=== PATIENT | female | born 1980 | race Caucasian/White ===

== ENCOUNTER → 2016-10-30 | Day surgery (SDC) | payer OTHER ==
[2016-10-30 09:50] LABS: HCT 36.6 % (37.0-47.0); HGB 12.9 g/dl (12.5-16.0); MCH 31.7 pg (25.0-31.0); MCHC 35.2 g/dL (32.0-36.0); MCV 89.9 fL (78.0-100.0); MPV 9.2 fL (6.0-9.5); RBC 4.07 M/uL (4.20-5.40); RDW 12.8 % (11.5-14.0); WBC 3.6 K/uL (4.0-10.5)
[2016-10-30 10:06] LABS: ALBUMIN 4.5 g/dL (3.5-5.0); BILIRUBIN - TOTAL 0.7 mg/dL (0.1-1.0); CREATININE 0.8 mg/dL (0.5-1.0); GLOBULIN (CALCULATION) 2.5 g/dL (2.2-4.2)
== END | disposition home or self-care (01) ==
LOC: FAS 09:26
PROVIDERS: Surgery
DX: Z12.11 Encounter for screening for malignant neoplasm of colon (principal); K29.70 Gastritis, unspecified, without bleeding; K21.9 Gastro-esophageal reflux disease without esophagitis; I34.1 Nonrheumatic mitral (valve) prolapse; E03.9 Hypothyroidism, unspecified; K58.9 Irritable bowel syndrome, unspecified; G30.9 Alzheimer's disease, unspecified; F02.80 Dementia in other diseases classified elsewhere, unspecified severity, without behavioral disturbance, psychotic disturbance, mood disturbance, and anxiety; Z87.891 Personal history of nicotine dependence; Z86.14 Personal history of Methicillin resistant Staphylococcus aureus infection; Z83.2 Family history of diseases of the blood and blood-forming organs and certain disorders involving the immune mechanism; Z83.42 Family history of familial hypercholesterolemia; Z82.49 Family history of ischemic heart disease and other diseases of the circulatory system; Z82.61 Family history of arthritis; Z83.3 Family history of diabetes mellitus; Z79.899 Other long term (current) drug therapy; Z98.890 Other specified postprocedural states
CPT/HCPCS: 43239; G0105; 36415; 80053; 84703; 88305; J2704

== ENCOUNTER → 2017-01-26 | Day surgery (SDC) | payer OTHER ==
[2017-01-26 09:16] LABS: HGB 13.1 g/dl (12.5-16.0); MCH 31.6 pg (25.0-31.0); MCHC 35.4 g/dL (32.0-36.0); MCV 89.2 fL (78.0-100.0); MPV 9.6 fL (6.0-9.5); RBC 4.15 M/uL (4.20-5.40); RDW 12.5 % (11.5-14.0); WBC 5.6 K/uL (4.0-10.5)
[2017-01-26 09:28] LABS: ALBUMIN 4.2 g/dL (3.5-5.0); BILIRUBIN - TOTAL 0.5 mg/dL (0.1-1.0); CREATININE 0.7 mg/dL (0.5-1.0); GLOBULIN (CALCULATION) 2.8 g/dL (2.2-4.2); POTASSIUM 4.5 mmol/L (3.5-5.1)
== END | disposition home or self-care (01) ==
LOC: FAS 07:59
PROVIDERS: Surgery
DX: K81.1 Chronic cholecystitis (principal); K21.9 Gastro-esophageal reflux disease without esophagitis; E03.9 Hypothyroidism, unspecified; Z98.890 Other specified postprocedural states; F41.9 Anxiety disorder, unspecified; Z79.1 Long term (current) use of non-steroidal anti-inflammatories (NSAID); Z79.52 Long term (current) use of systemic steroids; Z79.899 Other long term (current) drug therapy
CPT/HCPCS: 36415; 80053; 84703; 88304; J1170; J2405; J2704; J2710; J3010; Q9962

== ENCOUNTER 2021-07-29 10:01 | Emergency (ER) | payer OTHER ==
[2021-07-29 11:06] LABS: BASOPHIL 0.8 % (0-2); EOSINOPHIL 2.2 % (0-5); HCT 38.9 % (37.0-47.0); HGB 13.1 g/dl (12.5-16.0); LYMPHOCYTE 29.2 % (15-48); MCH 31.5 pg (25.0-31.0); MCHC 33.7 g/dL (32.0-36.0); MCV 93.5 fL (78.0-100.0); MONOCYTE 10.4 % (0-12); MPV 9.4 fL (6.0-9.5); NEUTROPHIL 56.6 % (41-80); NRBC 0; PLT 237 K/uL (150-400); RBC 4.16 M/uL (4.20-5.40); RDW 12.6 % (11.5-14.0); WBC 7.1 K/uL (4.0-10.5)
[2021-07-29 11:23] LABS: BILIRUBIN NEGATIVE (NEGATIVE); BLOOD NEGATIVE Ery/uL (NEGATIVE); CLARITY CLEAR (CLEAR); COLOR YELLOW (YELLOW); GLUCOSE (U) NORMAL (NORMAL); LEUKOCYTES 1+ Leu/uL (NEGATIVE); NITRITE NEGATIVE (NEGATIVE); PROTEIN NEGATIVE (NEGATIVE); SPECIFIC GRAVITY 1.025 (1.001-1.030); UROBILINOGEN 0.2 mg/dL (0.2-1.0); pH 6.5 (5.0-9.0)
[2021-07-29 11:38] LABS: ALBUMIN 3.6 g/dL (3.4-5.0); BILIRUBIN - TOTAL 0.6 mg/dL (0.2-1.0); BUN/CREAT RATIO (CALC) 21.6 RATIO; CREATININE 0.88 mg/dL (0.51-0.95); MAGNESIUM 2.4 mg/dL (1.8-2.4); PHOSPHORUS 4.2 mg/dL (2.6-4.7); POTASSIUM 3.9 mmol/L (3.5-5.1); TOTAL PROTEIN 6.6 g/dL (6.4-8.2)
[2021-07-29 12:04] LABS: BACTERIA 2+; MUCOUS TRACE
[2021-07-29] MEDS ORDERED: MACROBID100 MG PO (13:36)
== END 2021-07-29 14:30 | disposition home or self-care (01) ==
LOC: FER 10:01
PROVIDERS: Emergency Medicine
DX: G62.9 Polyneuropathy, unspecified (principal); N39.0 Urinary tract infection, site not specified; R52 Pain, unspecified
CPT/HCPCS: 36415; 70450; 71045; 80053; 81001; 83735; 84100; 84484; 85025; 85379; 87088; 93005; J0780; J1200; J1885; J3411; J3475; J7120